=== PATIENT | male | born 1955 | race Caucasian/White ===

== ENCOUNTER 2021-11-05 08:09 | Outpatient (CLI) | payer BC | END 2021-11-05 08:10 | disposition home or self-care (01) | LOC: CSHMRI 08:09 | PROVIDERS: ATTEND Student in an Organized Health Care Education/Training Program | DX: R29.898 Other symptoms and signs involving the musculoskeletal system (principal); M47.816 Spondylosis without myelopathy or radiculopathy, lumbar region | CPT/HCPCS: 72148 ==

== ENCOUNTER 2022-01-07 10:50 | Outpatient (CLI) | payer BC | END 2022-01-07 10:51 | disposition home or self-care (01) | LOC: CSHULT 10:50 | PROVIDERS: ATTEND Family Medicine | DX: G45.9 Transient cerebral ischemic attack, unspecified (principal) | CPT/HCPCS: 93880 ==